=== PATIENT | female | born 2000 | race African-American/Black ===

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

== ENCOUNTER 2019-07-14 18:41 | Emergency (ER) | payer SELFPAY ==
[~2019-07-14] VITALS: Ht 167.6 cm; Wt 55.0 kg
[~2019-07-14 18:41] MED LIST: ONDA4TAB10 PO
[2019-07-14 18:49] VITALS: BP 125/71
--- NOTE | 2019-07-14 19:04 | PHYS DOC ---
Past Medical History Past Medical History: No Pertinent History Past Surgical History: No Surgical History Smoking Status: Never Smoker Alcohol Use: None Drug Use: None Adult General Chief Complaint Chief Complaint: ABDOMINAL PAIN HPI HPI Patient is a 18 year old female who presents with abdominal cramping this been ongoing for 2 months. Patient says she has not had a menstrual period in the last 2 months. The patient denies . She has a negative test at home. Denies additional symptoms including fever. Complete ROS were reviewed and found to be within normal limits, except as documented in the HPI Allergies Allergies Allergies Coded Allergies Type Severity Reaction Last Updated Verified amoxicillin Allergy Intermediate Rash 09/23/16 Yes Physical Exam Physical Exam Constitutional: Well developed, well nourished, no acute distress, non-toxic appearance. [] HENT: Normocephalic, atraumatic, bilateral external ears normal, oropharynx moist, no oral exudates, nose normal. [] Abdomen: Bowel sounds normal, soft, mild lower abd tenderness, no masses, no pulsatile masses. [] Neurologic: Alert and oriented X 3, normal motor function, normal sensory function, no focal deficits noted. [] Psychologic: Affect normal, judgment normal, mood normal. [] Current Patient Data Vital Signs Vital Signs Date Time Temp Pulse Resp B/P (MAP) Pulse Ox O2 Delivery O2 Flow Rate FiO2 07/14/19 18:49 97.9 102 18 125/71 (89) 99 Room Air 97.9 Lab Values Laboratory Tests Test 07/14/19 18:47 07/14/19 18:52 Urine Collection Type Unknown Urine Color Yellow Urine Clarity Clear Urine pH 7.5 (<5.0-8.0) Urine Specific [place] 1.015 (1.000-1.030) Urine Protein Negative mg/dL (NEG-TRACE) Urine Glucose (UA) Negative mg/dL (NEG) Urine Ketones (Stick) Negative mg/dL (NEG) Urine Blood Negative (NEG) Urine Nitrite Negative (NEG) Urine Bilirubin Negative (NEG) Urine Urobilinogen Dipstick 0.2 mg/dL (0.2 mg/dL) Urine Leukocyte Esterase Trace (NEG) Urine RBC 0 /HPF (0-2) Urine WBC 1-4 /HPF (0-4) Urine Squamous Epithelial Cells Mod /LPF Urine Amorphous Sediment Present /HPF Urine Bacteria 0 /HPF (0-FEW) Urine Mucus Slight /LPF POC Urine HCG, Qualitative Hcg negative (Negative) EKG EKG [] Radiology/Procedures Radiology/Procedures [] Course & Med Decision Making Course & Med Decision Making Pertinent Labs and Imaging studies reviewed. (See chart for details) test negative. Will check urine. Urine is unremarkable for acute changes. This been ongoing for 2 months. This does not appear to be an emergency. Will have follow-up with [facility] for further work-up. Dragon Disclaimer Dragon Disclaimer This electronic medical record was generated, in whole or in part, using a voice recognition dictation system. Departure Departure Impression: Primary Impression: Abdominal cramping Additional Impression: Negative test Disposition: HOME, SELF-CARE Condition: STABLE Referrals: NO PCP (PCP) JUDIT ANTONY MD Patient Instructions: Abdominal Pain (Nonspecific) Additional Instructions: Thank you for visiting [facility]. We appreciate you trusting us with your care. If any additional problems come up don't hesitate to return to visit us. Please follow up with your primary care provider so they can plan additional care if needed and know about the problem that you had. If symptoms worsen come back to the Emergency Department. Any concerning symptoms that start such as chest pain, shortness of air, weakness or numbness on one side of the body, running high fevers or any other concerning symptoms return to the ER. Please follow-up with [facility] Problem Qualifiers DANIEL VILLALTA APRN Jul 14, 2019 19:04
[2019-07-14 19:08] LABS: BILIRUBIN,URINE NEGATIVE (NEG); CLARITY,URINE CLEAR; COLOR,URINE YELLOW; NITRITE,URINE NEGATIVE (NEG); PH,URINE 7.5 (<5.0-8.0); PROTEIN,URINE NEGATIVE (NEG-TRACE); UROBILINOGEN,URINE 0.2 mg/dL (0.2 mg/dL)
[2019-07-14 19:18] LABS: SQUAMOUS EPITHELIAL CELL,UR MOD /LPF
[2019-07-14 19:26] LABS: AMORPHOUS SEDIMENT,UR PRESENT /HPF; BACTERIA,URINE 0 /HPF (0-FEW); RBC,URINE 0 /HPF (0-2)
== END 2019-07-14 20:06 | disposition home or self-care (01) ==
LOC: ER 18:41
DX: R10.9 Unspecified abdominal pain (principal); Z88.1 Allergy status to other antibiotic agents
CPT/HCPCS: 81001; 81025; 87086; 99283

== ENCOUNTER 2020-03-22 02:53 | Emergency (ER) | payer SELFPAY ==
[~2020-03-22] VITALS: Ht 167.6 cm; Wt 59.1 kg
[~2020-03-22 02:53] MED LIST changes: +MEDR10TA PO
--- NOTE | 2020-03-22 03:10 | PHYS DOC ---
Past Medical History Past Medical History DUB Past Surgical History: No Surgical History Smoking Status: Never Smoker Alcohol Use: Rarely Drug Use: None General Adult EDM: Chief Complaint: VAGINAL BLEEDING HPI: HPI: Patient is a 19 year old female presents with a chief complaint of vaginal bleeding. Patient was here at the end of February and required a blood transfusion for vaginal bleeding. Patient had the bleeding controlled with progesterone. Patient had restart the progesterone 5 days ago with the bleeding started again. Patient comes in tonight because he is having severe lower abdominal cramping that is worse with palpation. Pain is nonradiating. Patient denies any nausea vomiting or fever. Patient denies any dysuria. Patient denies any dizziness lightheadedness or shortness of breath. Patient states she is gone through 6 pads today. Review of Systems: Review of Systems: Constitutional: Denies fever or chills. [] Eyes: Denies change in visual acuity. [] HENT: Denies nasal congestion or sore throat. [] Respiratory: Denies cough or shortness of breath. [] Cardiovascular: Denies chest pain or edema. [] GI: Complains abdominal pain but no nausea vomiting or diarrhea. : Denies dysuria. [] Patient complains of vaginal bleeding Musculoskeletal: Denies back pain or joint pain. [] Integument: Denies rash. [] Neurologic: Denies headache, focal weakness or sensory changes. [] Endocrine: Denies polyuria or polydipsia. [] Lymphatic: Denies swollen glands. [] Psychiatric: Denies depression or anxiety. [] Heart Score: Risk Factors: Risk Factors: DM, Current or recent (<one month) smoker, HTN, HLP, family history of CAD, obesity. Risk Scores: Score 0 - 3: 2.5% MACE over next 6 weeks - Discharge Home Score 4 - 6: 20.3% MACE over next 6 weeks - Admit for Clinical Observation Score 7 - 10: 72.7% MACE over next 6 weeks - Early Invasive Strategies Current Medications: Current Medications Morphine Sulfate (Morphine Sulfate) 4 mg 1X ONCE IV ; Start 03/22/20 at 04:30; Stop 03/22/20 at 04:31 Ondansetron HCl (Zofran) 4 mg 1X ONCE IVP ; Start 03/22/20 at 04:30; Stop 03/22/20 at 04:31 Ondansetron HCl (Zofran) 4 mg STK-MED ONCE .ROUTE ; Start 03/22/20 at 04:20; Stop 03/22/20 at 04:20; Status DC Active Scripts Active Reported Provera (Medroxyprogesterone Acetate) 10 Mg Tablet 10 Mg PO BID 5 Days Allergies: Allergies: Allergies Coded Allergies Type Severity Reaction Last Updated Verified amoxicillin Allergy Intermediate Rash 09/23/16 Yes Physical Exam: PE: Constitutional: Well developed, well nourished, no acute distress, non-toxic appearance. [] HENT: Normocephalic, atraumatic, bilateral external ears normal, no trismus, nose normal. [] Eyes: PERRLA, EOMI, conjunctiva normal, no discharge. [] Neck: Normal range of motion, no tenderness, supple, no stridor. [] Cardiovascular:Heart rate regular rhythm, peripheral pulse intact cap refill is brisk Lungs & Thorax: Bilateral breath sounds clear, no respiratory distress Abdomen: Abdomen soft, no guarding or rebound, diffuse lower abdominal tenderness. No masses, no pulsatile masses Skin: Warm, dry, no erythema, no rash. [] Back: No tenderness, no CVA tenderness. [] Extremities: No tenderness, no cyanosis, no clubbing, ROM intact, no edema. [] Neurologic: Alert and oriented X 3, normal motor function, normal sensory function, no focal deficits noted. [] Psychologic: Affect normal, judgement normal, mood normal. [] Current Patient Data: Labs: Laboratory Tests Test 03/22/20 02:57 03/22/20 03:27 Urine Collection Type Unknown Urine Color Red Urine Clarity Turbid Urine pH Urine Specific [place] 1.020 Urine Protein mg/dL Urine Glucose (UA) mg/dL Urine Ketones (Stick) mg/dL Urine Blood Urine Nitrite Urine Bilirubin Urine Urobilinogen Dipstick mg/dL Urine Leukocyte Esterase Urine RBC Tntc /HPF Urine WBC 20-40 /HPF Urine Squamous Epithelial Cells Few /LPF Urine Amorphous Sediment Present /HPF Urine Bacteria 0 /HPF Urine Mucus Mod /LPF White Blood Count 8.4 x10^3/uL Red Blood Count 4.32 x10^6/uL Hemoglobin 9.7 g/dL Hematocrit 31.3 % Mean Corpuscular Volume 73 fL Mean Corpuscular Hemoglobin 23 pg Mean Corpuscular Hemoglobin Concent 31 g/dL Red Cell Distribution Width 26.5 % Platelet Count 247 x10^3/uL Neutrophils (%) (Auto) 48 % Lymphocytes (%) (Auto) 40 % Monocytes (%) (Auto) 9 % Eosinophils (%) (Auto) 2 % Basophils (%) (Auto) 1 % Neutrophils # (Auto) 4.0 x10^3/uL Lymphocytes # (Auto) 3.3 x10^3/uL Monocytes # (Auto) 0.8 x10^3/uL Eosinophils # (Auto) 0.2 x10^3/uL Basophils # (Auto) 0.1 x10^3/uL Platelet Estimate Adequate Hypochromasia Mod Poikilocytosis Slight Anisocytosis Marked Microcytosis Slight Spherocytes Occ Ovalocytes Few Stomatocytes Few Schistocytes Occ Maternal Serum HCG Beta Subunit < 1 mIU/mL Sodium Level 142 mmol/L Potassium Level 3.6 mmol/L Chloride Level 108 mmol/L Carbon Dioxide Level 24 mmol/L Anion Gap 10 Blood Urea Nitrogen 10 mg/dL Creatinine 0.8 mg/dL Estimated GFR (Cockcroft-Gault) 110.7 Glucose Level 86 mg/dL Calcium Level 8.6 mg/dL Current Medications Medications (Trade) Dose Ordered Sig/Rita Route PRN Reason Start Time Stop Time Status Last Admin Dose Admin Morphine Sulfate (Morphine Sulfate) 4 mg 1X ONCE IV 03/22/20 04:30 03/22/20 04:31 Ondansetron HCl (Zofran) 4 mg 1X ONCE IVP 03/22/20 04:30 03/22/20 04:31 Ondansetron HCl (Zofran) 4 mg STK-MED ONCE .ROUTE 03/22/20 04:20 03/22/20 04:20 DC Vital Signs: Vital Signs Date Time Temp Pulse Resp B/P (MAP) Pulse Ox O2 Delivery O2 Flow Rate FiO2 03/22/20 03:20 98.2 82 18 121/64 (83) 99 Room Air 98.2 EKG: EKG: [] Radiology/Procedures: Radiology/Procedures: [][facility] [address] [place] [address] IMAGING REPORT Signed PATIENT: JS VITAL ACCOUNT: [id number] : 2000 LOCATION: ER AGE: 19 SEX: F EXAM STATUS: REG ER ORD. PHYSICIAN: KARELY MEDRANO MD REASON: VB PROCEDURE: PELVIS W/TV PELVIS W/TV History: Menorrhagia. Abdominal cramping. Comparison: None Technique: Grayscale and color Doppler imaging of the pelvis was performed using transabdominal and transvaginal technique. Findings: The uterus measures 8.8 x 4.2 x 3.4 cm. Uterus has an unremarkable appearance. The endometrial stripe measures 4 mm. Right ovary measures 3.4 x 3.1 x 1.7 cm. Multiple right ovarian follicles largest measures 0.8 cm. Left ovary measures 2.8 x 2.5 x 2.2 cm. Multiple left ovarian follicles largest measures 0.8 cm. Normal Doppler flow to the ovaries. Small pelvic free fluid. IMPRESSION: 1. Multiple bilateral ovarian follicles, suggests polycystic ovarian syndrome in the appropriate clinical setting. Recommend follow-up. 2. Small pelvic free fluid. Electronically signed by: Destin Gonzales DO (03/22/2020 4:17 AM) [facility] DICTATED and SIGNED BY: DESTIN GONZALES DO DATE: 03/22/20 [id number] 0 Course & Med Decision Making: Course & Med Decision Making Pertinent Labs and Imaging studies reviewed. (See chart for details) [] 19-year-old female presents with vaginal bleeding. Patient's hemoglobin is improved from recent admission. Patient does not need a blood transfusion. Patient is hemodynamically stable. Ultrasound revealed possible possible polycystic ovaries. Patient's test is negative. Patient will be stable for discharge with pain meds and follow-up with Dr. Willson. Patient reassessed at 4:30 AM with clinical improvement. Anna Disclaimer: Anna Disclaimer: This electronic medical record was generated, in whole or in part, using a voice recognition dictation system. Departure Departure Impression: Primary Impression: Dysfunctional uterine bleeding Additional Impression: Pelvic pain Disposition: 01 DC HOME SELF CARE/HOMELESS Condition: STABLE Referrals: NO PCP (PCP) JUDIT ANTONY MD 2-3 days Patient Instructions: Uterine Bleeding, Dysfunctional Additional Instructions: EMERGENCY DEPARTMENT GENERAL DISCHARGE INSTRUCTIONS THANK YOU for coming to [facility] Emergency Department (ED) today and trusting us with your care. We trust that you had a positive experience in our Emergency Department. If you wish to speak to the department Management you can contact the trimming department blocker at . YOUR FOLLOW UP INSTRUCTIONS ARE FOLLOWS: Do you have a private doctor? If you do not have a private doctor, please ask for a resource list of physicians or clinics that may be able to assist you with follow up care. The Emergency Physician has interpreted your x-rays. The X-ray specialist will also review them. If there is a change in the findings you will be notified in 48 hours when at all possible. A lab test or lab culture may have been done, your results will be reviewed and you will be notified if you need a change in treatment. ADDITIONAL INSTRUCTIONS AND INFORMATION Your care today has been supervised by a physician who is specially trained in emergency care. Many problems require more than one evaluation for a complete diagnosis and treatment. We recommend that you schedule your follow up appointment as recommended to ensure complete treatment of your illness or injury. If you are unable to obtain follow up care and continue to have a problem, or if your condition worsens we recommend that you return to the ED. We are not able to safely determine your condition over the phone nor are we able to give sound medical advice over the phone. For these safety reasons, if you call for medical advice we will ask you to come to the ED for further evaluation If you have any questions regarding these discharge instructions please call the ED at . SAFETY INFORMATION In the interest of safety, wellness, and injury prevention; we encourage you to wear your seatbelt, if you smoke; quit smoking, and we encourage your family to use protective helmet for bicycling and other sporting events that present an increased risk for head injury. IF YOUR SYMPTOMS WORSEN OR NEW SYMPTOMS DEVELOP, OR YOU HAVE CONCERNS ABOUT YOUR CONDITION; OR IF YOUR CONDITION WORSENS WHILE YOU ARE WAITING FOR YOUR FOLLOW UP APPOINTMENT; EITHER CONTACT YOUR PRIMARY CARE DOCTOR, THE PHYSICIAN WHOSE NAME AND NUMBER YOU WERE GIVEN, OR RETURN TO THE ED IMMEDIATELY. Scripts Ondansetron (ONDANSETRON ODT) 4 Mg Tab.rapdis 1 TAB PO PRN Q6-8HRS PRN for NAUSEA, #12 TAB Prov: KARELY MEDRANO MD 03/22/20 Hydrocodone/Apap 5-325 (NORCO 5-325 TABLET) 1 Each Tablet 1-2 EACH PO PRN Q6HRS PRN for PAIN, #12 as needed for pain Prov: KARELY MEDRANO MD 03/22/20 KARELY MEDRANO MD Mar 22, 2020 03:09
[2020-03-22 03:36] LABS: BASO # 0.1 x10^3/uL (0.0-0.2); BASO % 1 % (0-3); EOS # 0.2 x10^3/uL (0.0-0.7); EOS % 2 % (0-3); HEMATOCRIT 31.3 % (36.0-47.0); HEMOGLOBIN 9.7 g/dL (12.0-15.5); LYMPH # 3.3 x10^3/uL (1.0-4.8); LYMPH % 40 % (24-48); MEAN CORPUSCULAR HEMOGLOBIN 23 pg (25-35); MEAN CORPUSCULAR HGB CONC 31 g/dL (31-37); MEAN CORPUSCULAR VOLUME 73 fL (79-100); MONO # 0.8 x10^3/uL (0.0-1.1); MONO % 9 % (0-9); NEUT % 48 % (31-73); PLATELET COUNT 247 x10^3/uL (140-400); RED BLOOD COUNT 4.32 x10^6/uL (3.50-5.40); RED CELL DISTRIBUTION WIDTH 26.5 % (11.5-14.5); WHITE BLOOD COUNT 8.4 x10^3/uL (4.0-11.0)
[2020-03-22 03:44] LABS: CLARITY,URINE TURBID; COLOR,URINE RED
[2020-03-22 03:45] LABS: CALCIUM 8.6 mg/dL (8.5-10.1); CREATININE 0.8 mg/dL (0.6-1.0); GFR 110.7; POTASSIUM 3.6 mmol/L (3.5-5.1)
[2020-03-22 03:51] LABS: BACTERIA,URINE 0 /HPF (0-FEW); RBC,URINE TNTC /HPF (0-2); WBC,URINE 20-40 /HPF (0-4)
[2020-03-22 03:52] LABS: AMORPHOUS SEDIMENT,UR PRESENT /HPF
[2020-03-22 04:12] LABS: PLT ESTIMATE ADEQUATE (ADEQUATE)
[2020-03-22 04:14] LABS: ANISOCYTOSIS MARKED; HYPOCHROMIA MOD; MICROCYTOSIS SLIGHT; OVALOCYTES FEW; POIKILOCYTOSIS SLIGHT
[2020-03-22 04:15] LABS: SCHISTOCYTES OCC; SPHEROCYTES OCC; STOMATOCYTES FEW
[2020-03-22] MEDS ORDERED: ONDANSETRON PF 4 MG/2 ML VIAL. ONE (04:20)
--- NOTE | 2020-03-22 04:20 | RAD ---
PELVIS W/TV History: Menorrhagia. Abdominal cramping. Comparison: None Technique: Grayscale and color Doppler imaging of the pelvis was performed using transabdominal and transvaginal technique. Findings: The uterus measures 8.8 x 4.2 x 3.4 cm. Uterus has an unremarkable appearance. The endometrial stripe measures 4 mm. Right ovary measures 3.4 x 3.1 x 1.7 cm. Multiple right ovarian follicles largest measures 0.8 cm. Left ovary measures 2.8 x 2.5 x 2.2 cm. Multiple left ovarian follicles largest measures 0.8 cm. Normal Doppler flow to the ovaries. Small pelvic free fluid. IMPRESSION: 1. Multiple bilateral ovarian follicles, suggests polycystic ovarian syndrome in the appropriate clinical setting. Recommend follow-up. 2. Small pelvic free fluid. Electronically signed by: Destin Gonzales DO (03/22/2020 4:17 AM) [facility]
[2020-03-22 04:23] VITALS: BP 112/67
[2020-03-22] MEDS: MORPHINE SULFATE 4 MG/ML VIAL. IV ONE (04:25)
[2020-03-22] MEDS: ONDANSETRON PF 4 MG/2 ML VIAL. IVP ONE (04:25)
[2020-03-22] MEDS ORDERED: ONDA4TAB12 PO (04:33)
[2020-03-22] MEDS ORDERED: HYDR-3164 PO (04:33)
== END 2020-03-22 04:45 | disposition home or self-care (01) ==
LOC: ER 02:53
DX: N93.8 Other specified abnormal uterine and vaginal bleeding (principal); R10.2 Pelvic and perineal pain; Z88.1 Allergy status to other antibiotic agents
CPT/HCPCS: 36415; 76830; 76856; 80048; 81001; 84702; 85025; 87086; 96374; 96375; 99284; J2270; J2405

== ENCOUNTER 2020-07-30 17:51 | Emergency (ER) | payer MEDICAID ==
[~2020-07-30] VITALS: Ht 167.6 cm; Wt 50.0 kg
[~2020-07-30 17:51] MED LIST changes: +HYDR-3164 PO; +ONDA4TAB12 PO
[2020-07-30 18:11] LABS: BILIRUBIN,URINE NEGATIVE (NEG); CLARITY,URINE CLEAR; COLOR,URINE YELLOW; NITRITE,URINE NEGATIVE (NEG); PROTEIN,URINE NEGATIVE (NEG-TRACE)
[2020-07-30 18:20] LABS: BACTERIA,URINE 0 /HPF (0-FEW); WBC,URINE >40 /HPF (0-4)
[2020-07-30] MEDS ORDERED: PHEN100T82 PO (21:59)
[2020-07-30] MEDS ORDERED: SULF1TAB23 PO (21:59)
--- NOTE | 2020-07-30 21:59 | PHYS DOC ---
Past Medical History Past Medical History: Other Additional Past Medical Histor: UTERINE CYSTS (ARISTIDES SANTOS Kathrin GLUE WHEEL OPERATOR) Past Surgical History: No Surgical History (ARISTIDES SANTOS Kathrin GLUE WHEEL OPERATOR) Smoking Status: Never Smoker Alcohol Use: None Drug Use: None (ARISTIDES SANTOS GLUE WHEEL OPERATOR) General Adult EDM: Chief Complaint: VAGINAL PROBLEM HPI: HPI: Patient is a 19 year old female who presents to the ED today complaining of vaginal irritation, dysuria, symptoms for 2 days. Patient denies any chance she is , denies concerns for STDs. (ARISTIDES SANTOS GLUE WHEEL OPERATOR) Review of Systems: Review of Systems: Constitutional: Denies fever or chills. [] GI: Denies abdominal pain, nausea, vomiting, bloody stools or diarrhea. [] : Reports vaginal irritation and dysuria . [] Musculoskeletal: Denies back pain or joint pain. [] Integument: Denies rash. [] Neurologic: Denies headache, focal weakness or sensory changes. [] Psychiatric: Denies depression or anxiety. [] (ARISTIDES SANTOS Kathrin GLUE WHEEL OPERATOR) Heart Score: C/O Chest Pain: N/A Risk Factors: Risk Factors: DM, Current or recent (<one month) smoker, HTN, HLP, family history of CAD, obesity. Risk Scores: Score 0 - 3: 2.5% MACE over next 6 weeks - Discharge Home Score 4 - 6: 20.3% MACE over next 6 weeks - Admit for Clinical Observation Score 7 - 10: 72.7% MACE over next 6 weeks - Early Invasive Strategies (DANIELLEARISTIDES Kathrin GLUE WHEEL OPERATOR) Allergies: Allergies: Allergies Coded Allergies Type Severity Reaction Last Updated Verified amoxicillin Allergy Intermediate Rash 09/23/16 Yes (ARISTIDES SANTOS Kathrin GLUE WHEEL OPERATOR) Physical Exam: PE: Constitutional: Well developed, well nourished, no acute distress, non-toxic appearance. [] Abdomen: Bowel sounds normal, soft, no tenderness, no masses, no pulsatile masses. [] Pelvic exam External pelvic appears normal, cervix visualized, closed, no CMT, not adnexal tenderness, trace amount of clear discharge in the vaginal vault Skin: Warm, dry, no erythema, no rash. [] Back: No tenderness, no CVA tenderness. [] Extremities: No tenderness, no cyanosis, no clubbing, ROM intact, no edema. [] Neurologic: Alert and oriented X 3, normal motor function, normal sensory function, no focal deficits noted. [] Psychologic: Affect normal, judgement normal, mood normal. [] (ARISTIDES SANTOS APRN) Current Patient Data: Labs: Laboratory Tests Test 07/30/20 18:00 07/30/20 18:04 Urine Collection Type Unknown Urine Color Yellow Urine Clarity Clear Urine pH 7.0 (<5.0-8.0) Urine Specific [place] 1.020 (1.000-1.030) Urine Protein Negative mg/dL (NEG-TRACE) Urine Glucose (UA) Negative mg/dL (NEG) Urine Ketones (Stick) Negative mg/dL (NEG) Urine Blood Moderate (NEG) Urine Nitrite Negative (NEG) Urine Bilirubin Negative (NEG) Urine Urobilinogen Dipstick 1.0 mg/dL (0.2 mg/dL) Urine Leukocyte Esterase Moderate (NEG) Urine RBC 11-20 /HPF (0-2) Urine WBC >40 /HPF (0-4) Urine Squamous Epithelial Cells Few /LPF Urine Bacteria 0 /HPF (0-FEW) Urine Mucus Mod /LPF POC Urine HCG, Qualitative Hcg negative (Negative) Microbiology 07/30/20 Wet Prep - Final, Complete Vital Signs: Vital Signs Date Time Temp Pulse Resp B/P (MAP) Pulse Ox O2 Delivery O2 Flow Rate FiO2 07/30/20 19:26 97.6 88 16 107/51 (69) 100 Room Air 97.6 (ARISTIDES SANTOS APRN) EKG: EKG: [] (ARISTIDES SANTOS APRN) Radiology/Procedures: Radiology/Procedures: [] (ARISTIDES SANTOS APRN) Course & Med Decision Making: Course & Med Decision Making Pertinent Labs and Imaging studies reviewed. (See chart for details) This is a 19-year-old female patient presented to the ED today with vaginal irritation and dysuria for 2 days. Negative urine hCG, positive for UTI, wet prep negative. Discharged on Bactrim. (ARISTIDES SANTOS APRN) Dragon Disclaimer: Dragon Disclaimer: This electronic medical record was generated, in whole or in part, using a voice recognition dictation system. (ARISTIDES SANTOS APRN) Departure Departure Impression: Primary Impression: Urinary tract infection Qualified Codes: N39.0 - Urinary tract infection, site not specified Disposition: HOME / SELF CARE / HOMELESS Condition: STABLE Referrals: NO PCP (PCP) Follow-up with your doctor in 1 to 2 weeks Patient Instructions: Urinary Tract Infection Additional Instructions: You have urinary tract infection, take the prescribed antibiotics until com pleted follow up with your doctor in 1-2weeks Scripts Phenazopyridine Hcl (PYRIDIUM) 100 Mg Tablet 1 TAB PO TID for urinary discomfort for 2 Days, #6 TAB 0 Refills Prov: ARISTIDES SANTOS APRN 07/30/20 Sulfamethoxazole/Trimethoprim (BACTRIM 400-80 MG TABLET) 1 Each Tablet 1 TAB PO BID for 7 Days, #14 TAB 0 Refills Prov: ARISTIDES SANTOS APRN 07/30/20 Attending Signature Attending Signature I have participated in the care of this patient and I have reviewed and agree with all pertinent clinical information above including history, exam, and recommendations. (EDY HAMPTON MD) ARISTIDES SANTOS APRN Jul 30, 2020 21:59 EDY HAMPTON MD Jul 31, 2020 06:05
[2020-07-30 22:15] VITALS: BP 110/55
== END 2020-07-30 22:10 | disposition home or self-care (01) ==
LOC: ER 17:51
DX: N39.0 Urinary tract infection, site not specified (principal); R30.0 Dysuria; Z88.1 Allergy status to other antibiotic agents
CPT/HCPCS: 81001; 81025; 87086; 87491; 87591; 99284; Q0111

== ENCOUNTER 2020-11-21 12:23 | Emergency (ER) | payer MEDICAID ==
[~2020-11-21] VITALS: Ht 170.2 cm; Wt 54.8 kg
[~2020-11-21 12:23] MED LIST changes: +PHEN100T82 PO; +SULF1TAB23 PO
[2020-11-21 13:51] VITALS: BP 118/71
--- NOTE | 2020-11-21 15:45 | PHYS DOC ---
Past Medical History Past Medical History: Other Additional Past Medical Histor: UTERINE CYSTS Past Surgical History: No Surgical History Smoking Status: Never Smoker Alcohol Use: None Drug Use: None General Adult EDM: Chief Complaint: FLU SYMPTOM HPI: HPI: Patient is a 19 year old female patient presenting to the ED today complaining of headache, cough, fatigue, nasal congestion, symptoms began 3 to 4 days ago. Patient is concerned she could have Covid Review of Systems: Review of Systems: Constitutional: Reports fatigue. Denies fever or chills. [] Eyes: Denies change in visual acuity. [] HENT: Reports nasal congestion, denies sore throat. [] Respiratory: Reports cough, denies shortness of breath Cardiovascular: Denies chest pain or edema. [] GI: Denies abdominal pain, nausea, vomiting, bloody stools or diarrhea. [] : Denies dysuria. [] Musculoskeletal: Denies back pain or joint pain. [] Integument: Denies rash. [] Neurologic: Denies headache, focal weakness or sensory changes. [] Psychiatric: Denies depression or anxiety. [] Heart Score: C/O Chest Pain: N/A Risk Factors: Risk Factors: DM, Current or recent (<one month) smoker, HTN, HLP, family history of CAD, obesity. Risk Scores: Score 0 - 3: 2.5% MACE over next 6 weeks - Discharge Home Score 4 - 6: 20.3% MACE over next 6 weeks - Admit for Clinical Observation Score 7 - 10: 72.7% MACE over next 6 weeks - Early Invasive Strategies Allergies: Allergies: Allergies Coded Allergies Type Severity Reaction Last Updated Verified amoxicillin Allergy Intermediate Rash 11/21/20 Yes Physical Exam: PE: Constitutional: Well developed, well nourished, no acute distress, non-toxic appearance. [] HENT: Normocephalic, atraumatic, bilateral external ears normal, oropharynx moist, no oral exudates, nose normal. [] Eyes: PERRLA, EOMI, conjunctiva normal, no discharge. [] Neck: Normal range of motion, no tenderness, supple, no stridor. [] Cardiovascular:Heart rate regular rhythm, no murmur [] Lungs & Thorax: Bilateral breath sounds clear to auscultation [] Abdomen: Bowel sounds normal, soft, no tenderness, no masses, no pulsatile masses. [] Skin: Warm, dry, no erythema, no rash. [] Back: No tenderness, no CVA tenderness. [] Extremities: No tenderness, no cyanosis, no clubbing, ROM intact, no edema. [] Neurologic: Alert and oriented X 3, normal motor function, normal sensory function, no focal deficits noted. [] Psychologic: Affect normal, judgement normal, mood normal. [] Current Patient Data: Labs: Laboratory Tests Test 11/21/20 14:18 SARS-CoV-2 Antigen (Rapid) Negative (NEGATIVE) Vital Signs: Vital Signs Date Time Temp Pulse Resp B/P (MAP) Pulse Ox O2 Delivery O2 Flow Rate FiO2 11/21/20 13:51 98.7 84 16 118/71 (73) 100 Room Air 98.7 EKG: EKG: [] Radiology/Procedures: Radiology/Procedures: [] Course & Med Decision Making: Course & Med Decision Making Pertinent Labs and Imaging studies reviewed. (See chart for details) This is a well-appearing 19-year-old female patient presented to the ED today complaining of headache, nasal congestion, cough, fatigue, symptoms began 3 to 4 days ago. Negative for rapid Covid. PCR pending. Instructed to quarantine herself until the PCR comes back. Provided supportive care measures including pushing fluids, resting, OTC pain relievers. Anna Disclaimer: Anna Disclaimer: This electronic medical record was generated, in whole or in part, using a voice recognition dictation system. Departure Departure Impression: Primary Impression: Person under investigation for COVID-19 Additional Impressions: Cough Upper respiratory infection Qualified Codes: J06.9 - Acute upper respiratory infection, unspecified Disposition: 01 HOME / SELF CARE / HOMELESS Condition: STABLE Referrals: NO PCP (PCP) Follow-up with your own doctor in 1 to 2 weeks Patient Instructions: Cough, Adult, [id number], Viral Syndrome Additional Instructions: You were evaluated in the emergency room and tested for COVID-19. Your PCR Covid test is pending. The rapid test is negative. Please quarantine yourself until we give your results when the PCR comes back. We will call you. Maintain good hand hygiene, rest, push fluids. Tylenol or Motrin for pain or fever ARISTIDES SANTOS APRN Nov 21, 2020 15:45
--- NOTE | 2020-11-22 17:49 | NUR ---
IP: Informed pt of negative covid test. Pt verbalized understanding.
== END 2020-11-21 16:25 | disposition home or self-care (01) ==
LOC: ER 12:23
DX: J06.9 Acute upper respiratory infection, unspecified (principal); Z20.822 Contact with and (suspected) exposure to COVID-19
CPT/HCPCS: 87426; 99283; U0003; U0005

== ENCOUNTER 2020-12-23 20:43 | Emergency (ER) | payer OTHER, BC, MEDICAID ==
[~2020-12-23] VITALS: Ht 167.6 cm; Wt 54.5 kg
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
[2020-12-24] MEDS ORDERED: KETOROLAC 15 MG/ML VIAL. IM ONE (00:30)
[2020-12-24 02:16] VITALS: BP 107/67
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
== END 2020-12-24 02:22 | disposition home or self-care (01) ==
LOC: ER 20:43
DX: S40.012A Contusion of left shoulder, initial encounter (principal); S10.93XA Contusion of unspecified part of neck, initial encounter; G44.319 Acute post-traumatic headache, not intractable; Z88.1 Allergy status to other antibiotic agents; V49.49XA Driver injured in collision with other motor vehicles in traffic accident, initial encounter; Y93.89 Activity, other specified; Y92.488 Other paved roadways as the place of occurrence of the external cause; Y99.8 Other external cause status
CPT/HCPCS: 70450; 72125; 73030; 81025; 96372; 99285; J1885

== ENCOUNTER 2021-01-06 02:12 | Emergency (ER) | payer BC, MEDICAID, OTHER | END 2021-01-06 04:08 | disposition left against medical advice (07) | LOC: ER 02:12 | DX: N89.8 Other specified noninflammatory disorders of vagina (principal); Z53.21 Procedure and treatment not carried out due to patient leaving prior to being seen by health care provider ==

== ENCOUNTER 2021-01-27 19:38 | Emergency (ER) | payer MEDICAID ==
[~2021-01-27] VITALS: Ht 170.2 cm; Wt 55.5 kg
[2021-01-27 22:01] LABS: CLARITY,URINE TURBID; COLOR,URINE RED
--- NOTE | 2021-01-27 22:07 | PHYS DOC ---
Past Medical History Past Medical History: Other Additional Past Medical Histor: UTERINE CYSTS Past Surgical History: No Surgical History Smoking Status: Never Smoker Alcohol Use: None Drug Use: None General Adult EDM: Chief Complaint: MENSTRUAL PAIN/CRAMPS HPI: HPI: Patient is a 20 year old female presenting to the ED today complaining of heavy menstrual bleeding. Patient states menstrual cycle began a week ago and is still going on. She states she is using 6 light feminine pads every 24 hours. She is complaining of slight abdominal cramping. She states a couple months ago she had period for 2 weeks. Denies any headache or dizziness. Review of Systems: Review of Systems: Constitutional: Denies fever or chills. [] GI: Denies abdominal pain, nausea, vomiting, bloody stools or diarrhea. [] Reports heavy vaginal bleeding : Denies dysuria. [] Musculoskeletal: Denies back pain or joint pain. [] Integument: Denies rash. [] Neurologic: Denies headache, focal weakness or sensory changes. [] Psychiatric: Denies depression or anxiety. [] Heart Score: C/O Chest Pain: N/A Risk Factors: Risk Factors: DM, Current or recent (<one month) smoker, HTN, HLP, family history of CAD, obesity. Risk Scores: Score 0 - 3: 2.5% MACE over next 6 weeks - Discharge Home Score 4 - 6: 20.3% MACE over next 6 weeks - Admit for Clinical Observation Score 7 - 10: 72.7% MACE over next 6 weeks - Early Invasive Strategies Allergies: Allergies: Allergies Coded Allergies Type Severity Reaction Last Updated Verified amoxicillin Allergy Intermediate Rash 11/21/20 Yes Physical Exam: PE: Constitutional: Well developed, well nourished, no acute distress, non-toxic appearance. [] Abdomen: Bowel sounds normal, soft, no tenderness, no masses, no pulsatile masses. [] Pelvic exam External pelvic appears normal, cervix is visualized, no CMT, no adnexal tenderness, small amount of bright red blood in the vaginal vault Skin: Warm, dry, no erythema, no rash. [] Back: No tenderness, no CVA tenderness. [] Extremities: No tenderness, no cyanosis, no clubbing, ROM intact, no edema. [] Neurologic: Alert and oriented X 3, normal motor function, normal sensory function, no focal deficits noted. [] Psychologic: Affect normal, judgement normal, mood normal. [] EKG: EKG: [] Radiology/Procedures: Radiology/Procedures: [] Course & Med Decision Making: Course & Med Decision Making Pertinent Labs and Imaging studies reviewed. (See chart for details) This 20-year-old female patient presented to the ED today complaining of heavy vaginal bleeding for 1 week. She has used 6 light feminine pads today. CBC with a normal WBC, hemoglobin 8.3 with hematocrit of 26.9. Patient was advised to start taking croh-unt-loefosi iron tablets. She was advised to contact the [facility] and follow-up. I provided patient Dr. Mccallum's contact information. She was instructed to return to the ED at any point she starts soaking more than 1 feminine pad an hour Dragon Disclaimer: Dragon Disclaimer: This electronic medical record was generated, in whole or in part, using a voice recognition dictation system. Departure Departure Impression: Primary Impression: Dysfunctional uterine bleeding Disposition: HOME / SELF CARE / HOMELESS Condition: STABLE Referrals: NO PCP (PCP) DANIEL MCCALLUM MD follow up in 1-2 weeks Patient Instructions: Uterine Bleeding, Dysfunctional, [id number] Additional Instructions: You were evaluated in the emergency room for vaginal bleeding. Your hemoglobin is running low. Please consider taking vitamins or iron tablets every day to keep your iron levels normal. Please follow-up with the provided FOUR[facility] MATE or your own FOUR[facility] MATE in the next 7 days. Come back to the ED at any point symptoms worsen especially if you start soaking more than 1 feminine pad an hour Scripts Ferrous Sulfate (FERROUS SULFATE) 325 Mg Tablet 1 TAB PO DAILY, #30 TAB 3 Refills Prov: ARISTIDES SANTOS APRN 01/27/21 ARISTIDES SANTOS APRN Jan 27, 2021 22:07
[2021-01-27 22:13] LABS: U PREG PATIENT NEGATIVE (NEG)
[2021-01-27 22:22] LABS: BACTERIA,URINE 0 /HPF (0-FEW); RBC,URINE TNTC /HPF (0-2)
[2021-01-27 22:30] LABS: BASO % 1 % (0-3); EOS % 1 % (0-3); HEMATOCRIT 26.9 % (36.0-47.0); HEMOGLOBIN 8.3 g/dL (12.0-15.5); LYMPH # 1.4 x10^3/uL (1.0-4.8); LYMPH % 34 % (24-48); MEAN CORPUSCULAR HEMOGLOBIN 22 pg (25-35); MEAN CORPUSCULAR HGB CONC 31 g/dL (31-37); MEAN CORPUSCULAR VOLUME 73 fL (79-100); MONO # 0.4 x10^3/uL (0.0-1.1); MONO % 8 % (0-9); NEUT # 2.4 x10^3/uL (1.8-7.7); NEUT % 56 % (31-73); PLATELET COUNT 265 x10^3/uL (140-400); RED BLOOD COUNT 3.71 x10^6/uL (3.50-5.40); RED CELL DISTRIBUTION WIDTH 19.9 % (11.5-14.5); WHITE BLOOD COUNT 4.2 x10^3/uL (4.0-11.0)
[2021-01-27 22:54] LABS: HYPOCHROMIA MOD; PLT ESTIMATE ADEQUATE (ADEQUATE); POIKILOCYTOSIS SLIGHT
[2021-01-27 22:55] LABS: ANISOCYTOSIS SLIGHT; MICROCYTOSIS SLIGHT; OVALOCYTES FEW; SCHISTOCYTES OCC
[2021-01-27 23:10] VITALS: BP 104/59
[2021-01-27] MEDS ORDERED: FERROUS SULFATE 325 MG TABLET. PO STA (23:12)
[2021-01-27] MEDS ORDERED: FERR325T14 PO (23:18)
[2021-01-29 20:12] LABS: GC PROBE Negative (Negative)
== END 2021-01-27 23:56 | disposition home or self-care (01) ==
LOC: ER 19:38
DX: N93.8 Other specified abnormal uterine and vaginal bleeding (principal); R10.9 Unspecified abdominal pain; Z88.1 Allergy status to other antibiotic agents
CPT/HCPCS: 36415; 81001; 81025; 85025; 87491; 87591; 99284; Q0111

== ENCOUNTER 2021-02-11 12:38 | Emergency (ER) | payer BC, MEDICAID ==
[~2021-02-11] VITALS: Ht 167.6 cm; Wt 54.5 kg
[~2021-02-11 12:38] MED LIST changes: +FERR325T14 PO
[2021-02-11 13:25] VITALS: BP 117/73
[2021-02-11 14:06] LABS: INFLUENZA A PATIENT NEGATIVE (NEGATIVE); INFLUENZA B PATIENT NEGATIVE (NEGATIVE)
--- NOTE | 2021-02-11 14:15 | PHYS DOC ---
Past Medical History Past Medical History: Other Additional Past Medical Histor: UTERINE CYSTS Past Surgical History: No Surgical History Smoking Status: Never Smoker Alcohol Use: None Drug Use: None General Adult EDM: Chief Complaint: SHORTNESS OF BREATH HPI: HPI: Patient is a 20 year old female who presents to the ED today complaining of shortness of breath, fever, symptoms for a week. Patient states she works at [employer] and somebody tested positive for COVID-19. She is concerned she could have Covid Review of Systems: Review of Systems: Constitutional: Reports fever Eyes: Denies change in visual acuity. [] HENT: Denies nasal congestion or sore throat. [] Respiratory: Reports shortness of breath. Denies cough Cardiovascular: Denies chest pain or edema. [] GI: Denies abdominal pain, nausea, vomiting, bloody stools or diarrhea. [] : Denies dysuria. [] Musculoskeletal: Denies back pain or joint pain. [] Integument: Denies rash. [] Neurologic: Denies headache, focal weakness or sensory changes. [] Psychiatric: Denies depression or anxiety. [] Heart Score: C/O Chest Pain: N/A Risk Factors: Risk Factors: DM, Current or recent (<one month) smoker, HTN, HLP, family history of CAD, obesity. Risk Scores: Score 0 - 3: 2.5% MACE over next 6 weeks - Discharge Home Score 4 - 6: 20.3% MACE over next 6 weeks - Admit for Clinical Observation Score 7 - 10: 72.7% MACE over next 6 weeks - Early Invasive Strategies Allergies: Allergies: Allergies Coded Allergies Type Severity Reaction Last Updated Verified amoxicillin Allergy Intermediate Rash 11/21/20 Yes Physical Exam: PE: Constitutional: Well developed, well nourished, no acute distress, non-toxic appearance. [] HENT: Normocephalic, atraumatic, bilateral external ears normal, oropharynx moist, no oral exudates, nose normal. [] Eyes: PERRLA, EOMI, conjunctiva normal, no discharge. [] Neck: Normal range of motion, no tenderness, supple, no stridor. [] Cardiovascular:Heart rate regular rhythm, no murmur [] Lungs & Thorax: Bilateral breath sounds clear to auscultation [] Abdomen: Bowel sounds normal, soft, no tenderness, no masses, no pulsatile masses. [] Skin: Warm, dry, no erythema, no rash. [] Back: No tenderness, no CVA tenderness. [] Extremities: No tenderness, no cyanosis, no clubbing, ROM intact, no edema. [] Neurologic: Alert and oriented X 3, normal motor function, normal sensory function, no focal deficits noted. [] Psychologic: Affect normal, judgement normal, mood normal. [] Current Patient Data: Labs: Laboratory Tests Test 02/11/21 13:33 Influenza Type A Antigen Negative (NEGATIVE) Influenza Type B Antigen Negative (NEGATIVE) SARS-CoV-2 Antigen (Rapid) Negative (NEGATIVE) Vital Signs: Vital Signs Date Time Temp Pulse Resp B/P (MAP) Pulse Ox O2 Delivery O2 Flow Rate FiO2 02/11/21 13:25 98.8 99 18 117/73 (88) 100 Room Air 98.8 EKG: EKG: [] Radiology/Procedures: Radiology/Procedures: [] Course & Med Decision Making: Course & Med Decision Making Pertinent Labs and Imaging studies reviewed. (See chart for details) This is a 20-year-old female patient presented to the ED today complaining of sore throat and fever and concerned she could have COVID-19. She states somebody at work tested positive for the disease. Patient is afebrile in the ED, O2 sats 99% on room air. Negative rapid Covid test, negative influenza a and B. Pending Covid PCR test. Supportive care measures discussed. Patient will quarantine until the PCR Covid test returns Dragon Disclaimer: Anna Disclaimer: This electronic medical record was generated, in whole or in part, using a voice recognition dictation system. Departure Departure Impression: Primary Impression: Fever Qualified Codes: R50.9 - Fever, unspecified Additional Impressions: Shortness of breath Person under investigation for COVID-19 Disposition: HOME / SELF CARE / HOMELESS Condition: STABLE Referrals: NO PCP (PCP) follow up with your doctor in 1-2 weeks Patient Instructions: Viral Syndrome Additional Instructions: You were evaluated in the emergency room, your rapid Covid test is negative, your PCR Covid test is pending. We recommend you quarantine yourself until the PCR Covid test comes back. We will call you when results are back. Your rapid influenza test is negative. We encourage you to rest, push fluids, take Tylenol or Motrin for pain or fever. ARISTIDES SANTOS APRN Feb 11, 2021 14:15
--- NOTE | 2021-02-13 10:18 | NUR ---
IP: Attempted to contact pt concerning covid results. No answer, left a voicemail to return the call. Addendum: 02/13/21 at 1045 by BRANDY MCKEON RN Pt returned my call. Informed her of the negative covid test. Pt verbalized understanding.
== END 2021-02-11 14:05 | disposition home or self-care (01) ==
LOC: ER 12:38
DX: R50.9 Fever, unspecified (principal); Z20.822 Contact with and (suspected) exposure to COVID-19; R06.02 Shortness of breath; Z88.1 Allergy status to other antibiotic agents
CPT/HCPCS: 87426; 87804; 99283; U0003; U0005

== ENCOUNTER 2021-03-18 15:44 | Emergency (ER) | payer MEDICAID | END 2021-03-18 16:28 | disposition left against medical advice (07) | LOC: ER 15:44 | DX: R06.02 Shortness of breath (principal); R09.89 Other specified symptoms and signs involving the circulatory and respiratory systems; R51.9 Headache, unspecified; Z53.21 Procedure and treatment not carried out due to patient leaving prior to being seen by health care provider ==

== ENCOUNTER 2021-03-20 17:05 | Emergency (ER) | payer MEDICAID ==
[~2021-03-20] VITALS: Ht 170.2 cm; Wt 54.5 kg
[2021-03-20] MEDS ORDERED: IBUPROFEN 200 MG TABLET. PO ONE (19:15)
[2021-03-20] MEDS ORDERED: IV NORMAL SALINE 1000ML BAG 1,000 ML IV ONE (19:15)
[2021-03-20] MEDS ORDERED: ACETAMINOPHEN 500 MG TABLET PO ONE (19:15)
--- NOTE | 2021-03-20 19:20 | PHYS DOC ---
Past Medical History Past Medical History: Other Additional Past Medical Histor: UTERINE CYSTS Past Surgical History: No Surgical History Smoking Status: Never Smoker Alcohol Use: None Drug Use: None General Adult EDM: Chief Complaint: FLU SYMPTOM HPI: HPI: Patient is a 20 year old female who presents with a week of progressive shortness of breath, runny nose, and headaches. Last night had a fever to 102 F. Has been taking Tylenol for headaches, which helped somewhat. Was exposed to her sister in close contact who recently tested positive for Covid. She does complain of some chest discomfort especially when she is feeling short of breath and taking deep breaths. Denies lower extremity edema. No history of DVT/PE No hemoptysis No cancer history Review of Systems: Review of Systems: Constitutional: Reports fever and chills Eyes: Denies change in visual acuity. [] HENT: reports nasal congestion. Denies sore throat. [] Respiratory: Reports cough, nasal congestion, shortness of breath Cardiovascular: Reports chest pain. Denies edema. [] GI: Denies abdominal pain, nausea, vomiting, bloody stools or diarrhea. [] : Denies dysuria. [] Musculoskeletal: Denies back pain or joint pain. [] Integument: Denies rash. [] Neurologic: Denies headache, focal weakness or sensory changes. [] Endocrine: Denies polyuria or polydipsia. [] Lymphatic: Denies swollen glands. [] Psychiatric: Denies depression or anxiety. [] Heart Score: C/O Chest Pain: N/A Allergies: Allergies: Allergies Coded Allergies Type Severity Reaction Last Updated Verified amoxicillin Allergy Intermediate Rash 11/21/20 Yes Physical Exam: PE: Constitutional: Well developed, well nourished, no acute distress, non-toxic appearance. [] Cardiovascular: Tachycardic, regular Lungs & Thorax: Crackles bilaterally Abdomen: Bowel sounds normal, soft, no tenderness, no masses, no pulsatile masses. [] Skin: Warm, dry, no erythema, no rash. [] Extremities: No tenderness, no cyanosis, no clubbing, ROM intact, no edema. [] Neurologic: Alert and oriented X 3, normal motor function, normal sensory function, no focal deficits noted. [] Psychologic: Affect normal, judgement normal, mood normal. [] Current Patient Data: Vital Signs: Vital Signs Date Time Temp Pulse Resp B/P (MAP) Pulse Ox O2 Delivery O2 Flow Rate FiO2 03/20/21 17:13 98.5 119 20 128/70 (89) 99 Room Air 98.5 EKG: EKG: Sinus rhythm. Rate 119. Normal axis. Normal intervals. No acute ischemic changes. [] Radiology/Procedures: Radiology/Procedures: [] Impression: [facility] [address] [place] [address] IMAGING REPORT Signed PATIENT: JS VITAL ACCOUNT: [id number] : 2000 LOCATION: ER AGE: 20 SEX: F EXAM STATUS: REG ER ORD. PHYSICIAN: LINA BRANHAM MD REASON: cough, sob PROCEDURE: CHEST AP ONLY EXAMINATION: XR CHEST 1V CLINICAL HISTORY: Cough, shortness of breath EXAM DATE/TIME: 03/20/2021 7:49 PM COMPARISON: None FINDINGS: Lines, Tubes, and Devices: None. Cardiomediastinal Silhouette: Within normal limits. Lungs and Pleura: No evidence of focal airspace consolidation, pleural effusion, or pneumothorax. Bones and Soft Tissues: No acute osseous abnormality. IMPRESSION: No evidence of acute cardiopulmonary abnormality. Electronically signed by: Sudeep Woodall DO (03/20/2021 8:17 PM) [facility] DICTATED and SIGNED BY: SUDEEP WOODALL DO DATE: 03/20/[id number] 0 Course & Med Decision Making: Course & Med Decision Making Pertinent Labs and Imaging studies reviewed. (See chart for details) Patient is 20-year-old female who is not vaccinated for Covid with recent Covid exposure presenting with fever, shortness of breath, pleuritic chest pain. On arrival is tachycardic to 110s, BP and SPO2 are stable. Not in any distress on examination. Suspect likely Covid infection, but given pleuritic chest pain and tachycardia a nd concern for potential PE. Will check a D-dimer, EKG, CXR, Covid, influenza swabs. IVF, Tylenol, ibuprofen provided. 1919 Chest x-ray clear. Rapid Covid and influenza swabs are negative. Covid PCR is pending. Labs largely reassuring aside from a hemoglobin of 7.8. Review of history shows that she has had menorrhagia, and has microcytic anemia chronically occasionally requiring blood transfusion. She does not require blood transfusion today. I provided her a phone number for our quality assurance director to follow-up with. Her vital signs have slightly improved, now with a HR of ~100. BP 122/63, continuing to sat 100% on RA. Feel she is safe for discharge with strict return precautions. Isolation precautions given. 2102 Anna Disclaimer: Anna Disclaimer: This electronic medical record was generated, in whole or in part, using a voice recognition dictation system. Departure Departure Impression: Primary Impression: Microcytic anemia Additional Impressions: URI (upper respiratory infection) Headache Disposition: HOME / SELF CARE / HOMELESS Condition: IMPROVED Referrals: NO PCP (PCP) RONALD GUY MD Call Dr. Guy's office to schedule an appointment about your anemia. Additional Instructions: Your rapid Covid test, rapid influenza test, and chest x-ray were negative. Your blood work was largely reassuring except that showed a low red blood cell count. Your hemoglobin was 7.8. I see that it has been low in the past, I feel this time that you follow-up with a quality assurance director. Please call the attached number to schedule appointment. In the meantime please take iron supplementation as directed. Take without food. If you develop worsening shortness of breath, chest pain, lightheadedness, or other new/concerning symptoms please return to the emergency department for reevaluation. Your Covid PCR test, the most accurate test have, is still pending. Until you know the results of this you should continue to self isolate. Please isolate until you no longer have fevers and your symptoms are improving. If your Covid test is positive you will need to self isolate from 10 days since symptom onset, and have at least 72 hours without a fever and improving symptoms. Scripts Ferrous Sulfate (FERROUS SULFATE) 325 Mg Tablet 1 TAB PO BID, #60 TAB 3 Refills Prov: LINA BRANHAM MD 03/20/21 LINA BRANHAM MD Mar 20, 2021 19:20
--- NOTE | 2021-03-20 19:28 | EKG ---
[address] [place] [address] Test Date: 2021-03-20 Test Time: 19:25:34 Pat Name: JS VITAL Department: Room: Gender: F Director Of Culture: : 2000 Requested By: LINA BRANHAM Order Number: [id number] Reading MD: Camden Russ Measurements Intervals [place] Rate: 119 P: 45 CA: 114 QRS: 45 QRSD: 76 T: 24 QT: 320 QTc: 457 Interpretive Statements SINUS TACHYCARDIA LEFT ATRIAL ABNORMALITY Electronically Signed On 03-21-2021 12:33:26 [employer] OPERATOR by Camden Russ
[2021-03-20 19:47] LABS: BASO % 1 % (0-3); EOS % 1 % (0-3); HEMATOCRIT 25.8 % (36.0-47.0); HEMOGLOBIN 7.8 g/dL (12.0-15.5); LYMPH # 2.2 x10^3/uL (1.0-4.8); LYMPH % 46 % (24-48); MEAN CORPUSCULAR HEMOGLOBIN 20 pg (25-35); MEAN CORPUSCULAR HGB CONC 30 g/dL (31-37); MEAN CORPUSCULAR VOLUME 65 fL (79-100); MONO # 0.7 x10^3/uL (0.0-1.1); MONO % 14 % (0-9); NEUT # 1.9 x10^3/uL (1.8-7.7); NEUT % 39 % (31-73); PLATELET COUNT 290 x10^3/uL (140-400); RED BLOOD COUNT 3.98 x10^6/uL (3.50-5.40); RED CELL DISTRIBUTION WIDTH 20.2 % (11.5-14.5); WHITE BLOOD COUNT 4.9 x10^3/uL (4.0-11.0)
[2021-03-20 19:53] LABS: CALCIUM 8.7 mg/dL (8.5-10.1); CREATININE 0.5 mg/dL (0.6-1.0); GFR 188.5; POTASSIUM 3.6 mmol/L (3.5-5.1)
[2021-03-20 20:17] LABS: PLT ESTIMATE ADEQUATE (ADEQUATE)
[2021-03-20 20:18] LABS: ANISOCYTOSIS MOD; HYPOCHROMIA MARKED; MICROCYTOSIS MARKED; POIKILOCYTOSIS MOD; POLYCHROMASIA PRESENT; TARGET CELLS OCC
[2021-03-20 20:19] LABS: OVALOCYTES MOD; TEAR DROP CELLS FEW
[2021-03-20 20:20] LABS: SCHISTOCYTES OCC
--- NOTE | 2021-03-20 20:20 | RAD ---
EXAMINATION: XR CHEST 1V CLINICAL HISTORY: Cough, shortness of breath EXAM DATE/TIME: 03/20/2021 7:49 PM COMPARISON: None FINDINGS: Lines, Tubes, and Devices: None. Cardiomediastinal Silhouette: Within normal limits. Lungs and Pleura: No evidence of focal airspace consolidation, pleural effusion, or pneumothorax. Bones and Soft Tissues: No acute osseous abnormality. IMPRESSION: No evidence of acute cardiopulmonary abnormality. Electronically signed by: Sudeep Chris DO (03/20/2021 8:17 PM) [place]
[2021-03-20 20:21] LABS: SPHEROCYTES OCC
[2021-03-20 20:34] LABS: INFLUENZA A PATIENT NEGATIVE (NEGATIVE); INFLUENZA B PATIENT NEGATIVE (NEGATIVE)
[2021-03-20 21:00] VITALS: BP 122/63
[2021-03-20] MEDS ORDERED: FERR325T14 PO (21:06)
--- NOTE | 2021-03-22 11:56 | NUR ---
IP: Attempted to contact pt concerning covid results. No answer, left a voicemail to return the call. Addendum: 03/22/21 at 1401 by BRANDY MCKEON RN Pt returned call. Informed her of negative covid test. Pt verbalized understanding.
== END 2021-03-20 21:29 | disposition home or self-care (01) ==
LOC: ER 17:05
DX: J06.9 Acute upper respiratory infection, unspecified (principal); D50.9 Iron deficiency anemia, unspecified; R51.9 Headache, unspecified; Z20.822 Contact with and (suspected) exposure to COVID-19
CPT/HCPCS: 36415; 71045; 80048; 81025; 85025; 85379; 87426; 87804; 93005; 96360; 99285; J7030; U0003